=== PATIENT | male | born 1960 | race Caucasian/White ===

== ENCOUNTER 2016-12-16 17:00 | Inpatient (IN) | payer MEDICARE, MEDICAID ==
--- NOTE | 2016-12-16 17:36 | ED.PDOC ---
History of Present Illness - General Chief Complaint: Skin/Abrasion/Tear Stated Complaint: diabetic wound to right plantar foot Time Seen by Provider: 12/16/16 17:24 Source: patient, RN notes reviewed, Vital Signs reviewed Exam Limitations: no limitations - History of Present Illness Initial Comments: Patient comes in with open wound on the sole of his R foot. Reports it has been there a couple months. He was admitted to [facility] in [place] about 2 months ago for same. He left without completing treatment because he said they were not doing their job. He has not had any medical care for foot since leaving the hospital. He has had all the toes on his right foot removed due to diabetic complications and the 1st toe on his left foot. Timing/Duration: getting worse Severity: moderate Location: feet Improving Factors: nothing Worsening Factors: nothing Associated Symptoms: denies symptoms Allergies/Adverse Reactions: Allergies NO KNOWN ALLERGY Allergy (Verified 12/16/16 17:22) Home Medications: Ambulatory Orders Aspirin [Tgt Aspirin Low Dose] 81 mg PO BEDTIME 12/16/16 Insulin Glargine [Lantus Solostar] 15 units SUBCU BEDTIME 12/16/16 Insulin Lispro (Human) [Humalog] 100 unit SC DAILY 12/16/16 Metformin HCl 1,000 mg PO BEDTIME 12/16/16 Review of Systems - Review of Systems Constitutional: States: no symptoms reported Musculoskeletal: States: see HPI - Right foot pain Skin: States: see HPI, other - open wound on bottom of right foot. Neurological: States: no symptoms reported Past Medical History (General) - Patient Medical History Hx Cardiac Disorders: Yes - triple bypass Hx Hypertension: Yes Hx Diabetes: Yes - Vaccination History Hx Tetanus, Diphtheria Vaccination: No Hx Influenza Vaccination: No Hx Pneumococcal Vaccination: No - Social History Hx Tobacco Use: Yes Hx Alcohol Use: No Hx Substance Use: No Hx Substance Use Treatment: No Hx Depression: No - Activities of Daily Living Hospice Agency (if applicable):: None - Female History Patient is a Female of Child Bearing Age (10 -59 yrs old): No Patient : No Family Medical History - Family History Mother Family History: Unknown Physical Exam - Physical Exam General Appearance: Alert, Comfortable, No apparent distress, Unkempt Respiratory: no respiratory distress Extremity: other - Right foot - all toes have been surgically removed. ~3cm open wound on bottom of foot at distal aspect of 1st & 2nd metatarsals. Visable bone or tendon. Surrounding erythema of whole distal foot with streaking up ankle. + swelling and tenderness. Neurologic: no motor/sensory deficits, alert, normal mood/affect, oriented x 3 Skin Exam: warm/dry, normal color Skin Problem Location: lower extremities Skin Character: other - see above Comments: Vital Signs - 24 hr 12/16/16 17:10 Temperature 98.9 F Pulse Rate [ 105 H pulse ox] Respiratory 18 Rate Blood Pressure 125/75 [Left Arm] O2 Sat by Pulse 100 Oximetry Progress - Progress Progress: 12/16/16 18:10 Discussed with Hospitalist. Will admit for IV antibiotics and possible surgical intervention. Will start Zosyn and Vancomycin - Results/Orders Results/Orders: Laboratory Tests 12/16/16 17:41 WBC 9.3 RBC 3.63 L Hgb 9.9 L Hct 29.3 L MCV 80.9 MCH 27.2 MCHC 33.8 RDW 15.0 H Plt Count 216 MPV 7.9 Absolute Neuts (auto) 6.90 H Absolute Lymphs (auto) 1.60 Absolute Monos (auto) 0.60 Absolute Eos (auto) 0.10 Absolute Basos (auto) 0.10 Neutrophils % 74.0 Lymphocytes % 16.8 L Monocytes % 6.8 Eosinophils % 1.6 Basophils % 0.8 Sodium 135 Potassium 3.9 Chloride 104 Carbon Dioxide 24 Anion Gap 10.9 L BUN 44 H Creatinine 1.59 H BUN/Creatinine Ratio 27.7 H Random Glucose 307 H Serum Osmolality 292.9 Calcium 9.0 Total Bilirubin 0.8 AST 21 ALT 13 Alkaline Phosphatase 63 Serum Total Protein 7.3 Albumin 3.8 Globulin 3.5 Albumin/Globulin Ratio 1.1 - EKG/XRAY/CT XRAY: R Foot: air is soft tissue, transmetatarsal amputation Departure - Departure Clinical Impression: Diabetic ulcer of right foot associated with diabetes mellitus due to underlying condition Cellulitis Qualifiers: Site of cellulitis: extremity Site of cellulitis of extremity: lower extremity Laterality: right Qualifier Code: (L03.115) Cellulitis of right lower limb Time of Disposition: 18:34 Disposition: Admit Patient Condition: Good Departure Forms: ED Discharge - Pt. Copy, Patient Portal Self Enrollment Home Medications: Ambulatory Orders Aspirin [Tgt Aspirin Low Dose] 81 mg PO BEDTIME 12/16/16 Insulin Glargine [Lantus Solostar] 15 units SUBCU BEDTIME 12/16/16 Insulin Lispro (Human) [Humalog] 100 unit SC DAILY 12/16/16 Metformin HCl 1,000 mg PO BEDTIME 12/16/16 Decision To Admit - Decistion To Admit Decision to Admit Reason: Admit from ER - Diabetic ulcer, cellulitis
--- NOTE | 2016-12-16 17:50 | RAD ---
PROCEDURE: Foot,Right 3 Views CLINICAL HISTORY: Open wound on sole of foot with pain INDICATION: Same as above COMPARISON: None . TECHNIQUE: 3.0 Views of the right foot were done. FINDINGS: There is transmetatarsal amputation of the right midfoot with presence of air in the distal soft tissues of the right foot, along the distal plantar aspect. This finding is suspicious for soft tissue ulceration in the distal plantar aspect The joint spaces are relatively well-maintained. There is a moderate size plantar calcaneal spur IMPRESSION: There is transmetatarsal amputation of the right midfoot with presence of air in the distal soft tissues of the right foot, along the distal plantar aspect. This finding is suspicious for soft tissue ulceration in the distal plantar aspect Place of interpretation: [id number]. Electronically signed by: Rajinder Erickson MD 12/16/2016 5:49 PM CDT
[2016-12-16] MEDS ORDERED: VANCOMYCIN HCL INJ 1,000 MG, VANCOMYCIN HCL INJ 250 MG in SODIUM CHLORIDE 0.9% 250ML 25... IVPB ONE (18:09)
[2016-12-16] MEDS ORDERED: PIPERACILLIN/TAZOBACTAM 3.375 GM in SODIUM CHLORIDE 0.9% 100ML 100 ML IVPB ONE (18:10)
[2016-12-16] MEDS ORDERED: PIPERACILLIN/TAZOBACTAM 3.375 GM VIAL IVPB ONE ×2 (18:12→21:52)
[2016-12-16] MEDS ORDERED: SODIUM CHLORIDE 0.9% 100ML 100 ML IVPB ONE ×2 (18:13→22:32)
[2016-12-16] MEDS ORDERED: VANCOMYCIN HCL INJ 1,000 MG VIAL IVPB ONE (19:28)
[2016-12-16] MEDS ORDERED: VANCOMYCIN HCL INJ 500 MG VIAL ONE (19:28)
[2016-12-16] MEDS ORDERED: SODIUM CHLORIDE 0.9% 250ML 250 ML ONE (19:28)
[2016-12-16] MEDS ORDERED: ONDANSETRON INJ 4 MG/2 ML VIAL IV ONE (19:42)
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
[2016-12-16] MEDS ORDERED: KCL 20 MEQ/NS 1,000 ML IVS PRN (20:15)
[2016-12-16] MEDS ORDERED: ACETAMINOPHEN 325 MG TAB PO PRN (20:15)
[2016-12-16] MEDS ORDERED: TEMAZEPAM 15 MG CAP PO PRN (20:15)
[2016-12-16] MEDS ORDERED: HYDROcodone 5MG/APAP 325MG 1 EA TAB PO PRN (20:15)
[2016-12-16] MEDS ORDERED: DEXTROSE 50% 25 GM/50 ML SYG IV PRN (20:19)
[2016-12-16] MEDS ORDERED: GLUCAGON INJ 1 MG VIAL SUBCU PRN (20:19)
[2016-12-16] MEDS ORDERED: VANCOMYCIN PER PHARMACY INJ SCH (20:30)
[2016-12-16] MEDS ORDERED: ENOXAPARIN SODIUM 30 MG/0.3 ML SYG SUBCU SCH (20:30)
[2016-12-16] MEDS ORDERED: PANTOPRAZOLE SODIUM IV 40 MG VIAL IV SCH (20:30)
[2016-12-16] MEDS ORDERED: SODIUM CHLORIDE 0.9% 1000ML 1,000 ML IVS PRN (20:37)
[2016-12-16] MEDS: INSULIN LISPRO 100 UNITS/ML PEN SUBCU SCH (22:23)
[2016-12-16] MEDS: SODIUM CHLORIDE 0.9% (FLUSH) 10 ML SYG IV SCH (22:24)
[2016-12-16] MEDS: IV SET AND CAP CHANGE INJ INJ SCH (22:24)
[2016-12-16] MEDS: PIPERACILLIN/TAZOBACTAM 3.375 GM in SODIUM CHLORIDE 0.9% 100ML 100 ML IVPB SCH (22:33)
[2016-12-17] MEDS ORDERED: SODIUM CHLORIDE 0.9% 100ML 0 ML IVPB ONE (02:04)
[2016-12-17] MEDS ORDERED: PIPERACILLIN/TAZOBACTAM 3.375 GM VIAL IVPB ONE ×5 (02:04→23:12)
[2016-12-17] MEDS: PIPERACILLIN/TAZOBACTAM 3.375 GM in SODIUM CHLORIDE 0.9% 100ML 100 ML IVPB SCH ×3 (05:44→18:00)
[2016-12-17] MEDS: INSULIN LISPRO 100 UNITS/ML PEN SUBCU SCH ×4 (07:30→21:33)
[2016-12-17] MEDS: SODIUM CHLORIDE 0.9% (FLUSH) 10 ML SYG IV SCH ×2 (09:00→21:04)
[2016-12-17] MEDS ORDERED: SODIUM CHLORIDE 0.9% 1000ML 1,000 ML IVS ONE (10:41)
--- NOTE | 2016-12-17 10:44 | PCM.CORE ---
Physician DVT/VTE - Prophylaxis Currently: Patient already on anticoagulation therapy - Nurse DVT Assessment & Total Each Risk Factor Represents 3 Points: Medical PT with Hx of NH, CHF, Severe infection/sepsis Each Risk Factor Represents 1 Point: Age 41-60, Medical PT at Bed Rest, Hx of smoking past year DVT Assessment Score: 6 - 5 or more Very High Risk Treatments: Early Ambulation *, Sequential Compression Device
--- NOTE | 2016-12-17 11:14 | PN ---
SUPERVISING PHYSICIAN: Mirlande Tobin MD DATE: 12/17/16 SUBJECTIVE: The patient is sitting up in his bed. He has no complaints of shortness of breath, chest pain, abdominal pain, nausea or vomiting. He also denies any pain to the right foot. I discussed with him the options with his foot that he may have to have part of the lower right leg amputated due to the extent of problems with the wound care and that we were waiting on his medical records from [facility]. OBJECTIVE: VITAL SIGNS: Afebrile. Blood pressure 101/65. Heart rate 106. Respiratory rate 18. O2 saturation 93%. LUNGS: Essentially clear to auscultation bilaterally. CARDIAC: Regular rate and rhythm. ABDOMEN: Soft, nontender, nondistended. Bowel sounds are positive. EXTREMITIES: No cyanosis or clubbing. There is no edema to the left lower extremity, but there is to the distal portion of his right foot is very edematous with some erythema and ecchymosis that extends up to the heel. There is a large, 3 cm open wound on the bottom of the foot that extends along the first and second metatarsals. NEUROLOGIC: Awake, alert, and oriented times three although he is somewhat uncooperative in that he only answers certain questions. LABORATORY: White count 8.0, hemoglobin 9.8, hematocrit 28.9 Platelet count 97. Sodium 130, potassium 4.1, BUN 43, creatinine has gone up slightly to 1.68. Blood sugars are 404. TSH 13.02. Hemoglobin A1c is 12.1. Preliminary wound culture is positive for gram positive cocci. Preliminary blood cultures are negative. All other labs and films have been reviewed via the EMR. ASSESSMENT: 1. Cellulitis of the right foot. 2. Diabetic foot ulcer. 3. Poorly controlled diabetes mellitus, type 2. 4. Hypotension with recent blood pressure with systolic in the 80s. 5. Anemia. 6. Thrombocytopenia. 7. History of coronary artery disease. 8. Hypertension. 9. Remote history of seizures. 10. Unknown thyroid disorder. PLAN: We will continue present supportive care including his vancomycin and Zosyn IV antibiotics. I have restarted his home medications with the exception of his metformin and blood pressure medication. We will start him on Levemir tonight. I have also given him 1 liter of normal saline. I have started him on some Synthroid. We have requested medical records from [facility]. I have also added bronchial hygiene due to his recent history of smoking as well as elevating his leg. I spoke with Dr. Vasquez earlier today and depending on what the test results were from [facility], we will decide if he should be transferred to a wound care hospital or if we will continue to treat him here. Probably at the very least he will require a [id number] amputation at least at some point. Also, we need to rule out any osteomyelitis. He will need good diabetic education and encourage him to do good pulmonary hygiene. We will continue to monitor his labs closely. We will monitor the patient closely and followup as needed. Dr. Tobin is the collaborating physician and available for consultation. ADDENDUM: Will order bilateral arterial Doppler studies of the lower extremities, d/t suspected impaired vascularity. I also spoke to the radiologist and he suggested an MRI with contrast of the right lower extremity to rule out osteomyelitis. There was no mention of osteomyelitis in the report from [facility] in [place]. Will probably wait for culture sensitivities and treat with antibiotics for 6 weeks, get him in to [facility] to get his glucose under control and do MRI as an outpatient. If he has osteomyelitis, will most likely need below knee amputation. #[id number] [facility]
[2016-12-17] MEDS ORDERED: SODIUM CHLORIDE 0.9% 100ML 100 ML IVPB ONE ×4 (11:34→23:13)
[2016-12-17] MEDS ORDERED: SODIUM CHLORIDE 0.9% 1000ML 1,000 ML ONE (17:28)
[2016-12-17] MEDS ORDERED: [UNRECOGNIZED DRUG - OTHER] IVPB SCH (20:00)
[2016-12-17] MEDS ORDERED: VANCOMYCIN HCL IVPB SCH (20:00)
[2016-12-17] MEDS ORDERED: VANCOMYCIN HCL INJ 500 MG VIAL ONE (20:13)
[2016-12-17] MEDS ORDERED: SODIUM CHL 0.9% 250ML (AVIVA) 250 ML IVPB ONE (20:14)
[2016-12-17] MEDS ORDERED: VANCOMYCIN HCL INJ 1,000 MG VIAL IVPB ONE (20:14)
[2016-12-17] MEDS ORDERED: SODIUM CHLORIDE 0.9% 10 ML VIAL ONE (20:44)
[2016-12-17] MEDS ORDERED: INSULIN GLARGINE 15 UNIT SUBCU SCH (21:00)
[2016-12-17] MEDS: ENOXAPARIN SODIUM 40 MG/0.4 ML SYG SUBCU SCH (21:01)
[2016-12-17] MEDS: PANTOPRAZOLE SODIUM IV 40 MG VIAL IV SCH (21:02)
[2016-12-17] MEDS: INSULIN DETEMIR 100 UNITS/ML PEN SUBCU SCH (21:33)
[2016-12-18] MEDS: PIPERACILLIN/TAZOBACTAM 3.375 GM in SODIUM CHLORIDE 0.9% 100ML 100 ML IVPB SCH ×5 (00:18→23:49)
[2016-12-18] MEDS ORDERED: SODIUM CHLORIDE 0.9% 100ML 100 ML IVPB ONE ×4 (04:39→22:01)
[2016-12-18] MEDS ORDERED: PIPERACILLIN/TAZOBACTAM 3.375 GM VIAL IVPB ONE ×4 (04:39→22:01)
[2016-12-18] MEDS ORDERED: LEVOTHYROXINE SODIUM 0.075 MG TAB ONE (04:39)
[2016-12-18] MEDS: SODIUM CHLORIDE 0.9% (FLUSH) 10 ML SYG IV PRN (06:12)
[2016-12-18] MEDS: LEVOTHYROXINE SODIUM 0.075 MG TAB PO SCH (06:12)
[2016-12-18] MEDS: INSULIN LISPRO 100 UNITS/ML PEN SUBCU SCH ×4 (07:43→20:49)
[2016-12-18] MEDS ORDERED: NON-FORMULARY MEDICATION 1 EA MIS (Lisinopril & Hydrochlorothiazi [Lisinopril/Hctz 10-12.5 PO SCH (09:00)
[2016-12-18] MEDS: SODIUM CHLORIDE 0.9% (FLUSH) 10 ML SYG IV SCH ×2 (09:02→20:36)
[2016-12-18] MEDS: hydroCHLOROthiazide 12.5 MG CAP PO SCH (09:02)
[2016-12-18] MEDS: metFORMIN HCL 500 MG TAB PO SCH ×2 (09:02→17:01)
[2016-12-18] MEDS: LISINOPRIL 10 MG TAB PO SCH (09:02)
--- NOTE | 2016-12-18 13:33 | US ---
EXAM DESCRIPTION: Extremity,Lower Tor Arteries CLINICAL HISTORY: 56 years, Male, cellulitis R foot COMPARISON: None. TECHNIQUE: Real-time duplex Doppler ultrasound images obtained of both location arteries FINDINGS: Right lower extremity demonstrates scattered severe intimal thickening and mild wall plaques throughout. The largest focal plaque appears to be at the proximal superficial femoral artery of the about 50% diameter reduction. There are triphasic waveforms throughout the right lower extremity. Velocity in the common femoral artery 90 cm a second. Superficial femoral artery distally is 81 cm/s. Peak in at 116 in the midportion and posterior tibial distally is 127 cm second. At the dorsalis pedal is 32. Left lower extreme pairs rather similar. Largest focal stenosis as the proximal superficial femoral artery of 60% or so stenotic. There are triphasic waveforms throughout the left lower extremity. The velocity in the common femoral artery is 79 cm/s peak in at 90 cm/s in the mid superficial femoral artery and in the distal posterior tibial artery 115 cm/s and 50 in the dorsalis pedal. IMPRESSION: No hemodynamic significant stenosis seen throughout the lower extremity arteries. There is diffuse calcified wall plaques throughout with the largest visual stenosis of about 40% in the proximal right superficial femoral artery and about 60% and the left. Electronically signed by: Felipe Jain MD 12/18/2016 1:32 PM CDT
[2016-12-18] MEDS ORDERED: VANCOMYCIN HCL INJ 1,000 MG VIAL IVPB ONE (20:15)
[2016-12-18] MEDS ORDERED: SODIUM CHL 0.9% 250ML (AVIVA) 250 ML IVPB ONE (20:15)
[2016-12-18] MEDS ORDERED: SODIUM CHLORIDE 0.9% 10 ML VIAL ONE ×2 (20:16→20:19)
--- NOTE | 2016-12-18 20:29 | PN ---
DATE: 12/18/16 SUPERVISING PHYSICIAN: Byron Draper M.D. SUBJECTIVE: The patient is sitting up in his bed. He has no complaints at this time. He denies any pain in that right foot. He denies shortness of breath, chest pain, nausea or vomiting. OBJECTIVE: VITAL SIGNS: He is afebrile, pulse rate 91, blood pressure 157/91, respiratory rate 20, O2 sat is 100%. RESPIRATORY: Essentially clear to auscultation bilaterally. CARDIAC: Regular rate and rhythm. ABDOMEN: Soft, nondistended, non-tender. Bowel sounds are positive. EXTREMITIES: No cyanosis , clubbing or edema to the left lower leg. The right lower leg has some edema around the ankle about +1 and there is a dressing to the ball of his foot that is dry and intact. There is still some erythema and edema to the distal end of the right foot and it is somewhat tender to palpation. NEUROLOGIC: He is awake , alert and oriented times three, although he has difficulty answering some questions at times. LABORATORY: WBCs are 3.6, hemoglobin and hematocrit are stabilized at 9.9 and 28.9, platelets 73. Sodium 139, potassium 3.8, chloride 113, carbon dioxide 23 , BUN 23, creatinine has normalized to 1.17, glucose 106, calcium 7.7. Preliminary blood cultures after 48 hours show no growth, but his wound culture sensitivities were supposed to be available today but due to the presence of 1 gram negative melida and the presence of 2 gram positive cocci, the sensitivities will be delayed until tomorrow. All other labs and films have been reviewed via the EMR. ASSESSMENT: 1. Cellulitis of the right foot. 2. Diabetic foot ulcer. 3. Poorly controlled diabetes mellitus, type 2. 4. Hypotension with recent blood pressure with systolic in the 80s. 5. Anemia. 6. Thrombocytopenia. 7. History of coronary artery disease. 8. Hypertension. 9. Remote history of seizures. 10. Unknown thyroid disorder. PLAN: We will continue present supportive care, including his antibiotics which are vancomycin and Zosyn. I had started his home medications yesterday, but I continue to hold his Metformin. I have restarted his blood pressure medicine. I will await his sensitivities which should be ready tomorrow. Again , after those come back I will try to get in touch with Dr. Martin who is with Infectious Diseases in [place]. Depending on the sensitivities and if he can have oral antibiotics, we will discharge him home with close followup to control his blood sugars at [facility]. Otherwise if he needs IV antibiotics he may need to be transferred to an LTAC or a termite treater helper facility as he will most likely need 6 weeks of antibiotic therapy and that may not be an option at our hospital for Swing Bed, but at this point, I have left that to Ana Allen and we will try to figure out that by Wednesday. I have also ordered wound care with irrigation to that foot daily. We will continue to monitor the patient closely and followup as needed. Dr. Draper is the collaborating physician available for consultation. #[id number] [facility]
[2016-12-18] MEDS: VANCOMYCIN HCL IVPB SCH (20:35)
[2016-12-18] MEDS: SODIUM CHL 0.9% IVPB SCH (20:35)
[2016-12-18] MEDS: PANTOPRAZOLE SODIUM IV 40 MG VIAL IV SCH (20:40)
[2016-12-18] MEDS: INSULIN DETEMIR 100 UNITS/ML PEN SUBCU SCH (20:41)
[2016-12-18] MEDS: ENOXAPARIN SODIUM 40 MG/0.4 ML SYG SUBCU SCH (20:41)
[2016-12-19] MEDS ORDERED: SODIUM CHLORIDE 0.9% 100ML 100 ML IVPB ONE ×4 (06:00→23:47)
[2016-12-19] MEDS ORDERED: PIPERACILLIN/TAZOBACTAM 3.375 GM VIAL IVPB ONE ×4 (06:00→23:47)
[2016-12-19] MEDS: PIPERACILLIN/TAZOBACTAM 3.375 GM in SODIUM CHLORIDE 0.9% 100ML 100 ML IVPB SCH ×3 (06:15→17:39)
[2016-12-19] MEDS: LEVOTHYROXINE SODIUM 0.075 MG TAB PO SCH (06:47)
[2016-12-19] MEDS: INSULIN LISPRO 100 UNITS/ML PEN SUBCU SCH ×4 (07:24→21:00)
[2016-12-19] MEDS ORDERED: SODIUM CHL 0.9% 250ML (AVIVA) 250 ML IVPB ONE ×2 (07:34→18:15)
[2016-12-19] MEDS ORDERED: VANCOMYCIN HCL INJ 1,000 MG VIAL IVPB ONE ×2 (07:34→18:15)
[2016-12-19] MEDS ORDERED: SODIUM CHLORIDE 0.9% 10 ML VIAL ONE (07:41)
[2016-12-19] MEDS: SODIUM CHL 0.9% IVPB SCH ×2 (07:57→20:17)
[2016-12-19] MEDS: VANCOMYCIN HCL IVPB SCH ×2 (07:57→20:17)
[2016-12-19] MEDS: metFORMIN HCL 500 MG TAB PO SCH ×2 (07:57→16:55)
[2016-12-19] MEDS: LISINOPRIL 10 MG TAB PO SCH (08:48)
[2016-12-19] MEDS: SODIUM CHLORIDE 0.9% (FLUSH) 10 ML SYG IV SCH ×2 (08:49→21:06)
[2016-12-19] MEDS: hydroCHLOROthiazide 12.5 MG CAP PO SCH (08:49)
[2016-12-19] MEDS ORDERED: INSULIN DETEMIR 100 UNITS/ML PEN SUBCU SCH (11:11)
--- NOTE | 2016-12-19 11:57 | PN ---
DATE: 12/19/16 SUPERVISING PHYSICIAN: Byron Draper M.D. SUBJECTIVE: The patient is sitting up in his hospital bed. He is watching television. He has no complaints of shortness of breath, chest pain, nausea, vomiting or foot pain. OBJECTIVE: VITAL SIGNS: He is afebrile, heart rate 81, blood pressure 164/85, respiratory rate 18, O2 sat 98%. RESPIRATORY: Clear to auscultation bilaterally. CARDIAC: Regular rate and rhythm. ABDOMEN: Soft, nondistended, non-tender. Bowel sounds are positive. EXTREMITIES: No cyanosis, clubbing or edema to the left lower extremity. He has a trace of pedal edema to the right lower extremity and the distal portion of his foot is covered in a dressing. NEUROLOGIC: He is awake, alert and oriented times three. LABORATORY: WBCs are 3.4, hemoglobin 9.7, hematocrit 28, platelets 84. Sodium 139, potassium 4.1, BUN 12, creatinine 0.99. Blood sugars have run approximately 177 to 266. CRP has gone up slightly to 5.3 from the date of admission. Preliminary blood cultures after 48 hours show no growth. Wound culture has resulted and he has 3 organisms. Number 1 is Acinetobacter Baumannii, number 2 is Staphylococcus Aureus that is non-MRSA, and the third one is Streptococcus Dysgalactiae. He is presently on vancomycin and Zosyn. The cultures show sensitivities to both of those medications. All other labs and films have been reviewed via the EMR. ASSESSMENT: 1. Cellulitis of the right foot presently on Zosyn and vancomycin which his wound cultures are showing sensitivity to both of those medications. 2. Diabetic foot ulcer. 3. Poorly controlled diabetes mellitus type 2. 4. Hypotension with recent blood pressure with systolics in the 80s. It is now in the 140s to 150s. 5. Anemia. 6. Thrombocytopenia. 7. History of coronary artery disease. 8. Hypertension. 9. Remote history of seizures. 10. Hypothyroidism. PLAN: We will continue present supportive care, including his present antibiotics which are vancomycin and Zosyn. His sensitivities are back but I would like to speak to Dr. Martin prior to discharge for a plan for his antibiotic therapy as I know he will most likely need 6 weeks of antibiotic therapy. Depending on what she says, we can either put him in Swing Bed here or he can be sent to an LTAC if it is acceptable with p.o. antibiotics, we may be able to send him home on that for a 6 week therapy as an outpatient. He will need an MRI with contrast to that right lower leg. It is also to be noted that originally his home medication showed that he was taking 50 units of Lantus at bedtime and he was somehow started on 15 units at night. His blood sugars are somewhat uncontrolled at this point so I am going to increase it to 18 tonight and I have discontinued his previous home medication of the long- acting insulin, and will adjust it as needed here in the hospital. Otherwise I have ordered lab for in the morning. We will continue to monitor the patient closely and followup as needed. Dr. Draper is the collaborating physician available for consultation. #[id number] [facility]
[2016-12-19] MEDS: ENOXAPARIN SODIUM 40 MG/0.4 ML SYG SUBCU SCH (20:54)
[2016-12-19] MEDS: PANTOPRAZOLE SODIUM IV 40 MG VIAL IV SCH (21:05)
[2016-12-19] MEDS: IV SET AND CAP CHANGE INJ INJ SCH (21:31)
[2016-12-20] MEDS: SODIUM CHLORIDE 0.9% (FLUSH) 10 ML SYG IV PRN ×4 (00:08→23:55)
[2016-12-20] MEDS: PIPERACILLIN/TAZOBACTAM 3.375 GM in SODIUM CHLORIDE 0.9% 100ML 100 ML IVPB SCH ×5 (00:09→23:56)
[2016-12-20] MEDS ORDERED: PIPERACILLIN/TAZOBACTAM 3.375 GM VIAL IVPB ONE ×4 (04:55→23:24)
[2016-12-20] MEDS ORDERED: SODIUM CHLORIDE 0.9% 100ML 100 ML IVPB ONE ×4 (04:56→23:24)
[2016-12-20] MEDS: LEVOTHYROXINE SODIUM 0.075 MG TAB PO SCH (06:22)
[2016-12-20] MEDS: INSULIN LISPRO 100 UNITS/ML PEN SUBCU SCH ×4 (07:32→21:26)
[2016-12-20] MEDS: metFORMIN HCL 500 MG TAB PO SCH ×2 (07:44→17:00)
[2016-12-20] MEDS ORDERED: VANCOMYCIN HCL INJ 1,000 MG VIAL IVPB ONE ×2 (08:06→19:23)
[2016-12-20] MEDS ORDERED: SODIUM CHL 0.9% 250ML (AVIVA) 250 ML IVPB ONE ×2 (08:06→19:23)
[2016-12-20] MEDS: hydroCHLOROthiazide 12.5 MG CAP PO SCH (08:31)
[2016-12-20] MEDS: SODIUM CHL 0.9% IVPB SCH ×2 (08:31→20:03)
[2016-12-20] MEDS: LISINOPRIL 10 MG TAB PO SCH ×3 (08:31→20:37)
[2016-12-20] MEDS: VANCOMYCIN HCL IVPB SCH ×2 (08:31→20:03)
[2016-12-20] MEDS: SODIUM CHLORIDE 0.9% (FLUSH) 10 ML SYG IV SCH ×2 (08:32→20:37)
[2016-12-20] MEDS ORDERED: INSULIN DETEMIR 100 UNITS/ML PEN SUBCU SCH (08:36)
--- NOTE | 2016-12-20 11:25 | PN ---
DATE: 12/20/16 SUPERVISING PHYSICIAN: Byron Draper M.D. SUBJECTIVE: The patient is sitting up in his bed. He is watching television. He has no complaints of chest pain, shortness of breath, nausea or vomiting or pain in his lower extremities. OBJECTIVE: VITAL SIGNS: He is afebrile, heart rate 81, blood pressure 168/98, respiratory rate 18, O2 sat 97% on room air. RESPIRATORY: Essentially clear to auscultation bilaterally. CARDIAC: Regular rate and rhythm. ABDOMEN: Soft, nondistended, non-tender. Bowel sounds are positive. NEUROLOGIC: He is awake and alert. Answers questions appropriately. EXTREMITIES: Minimal swelling to the right lower extremity. His right foot is covered in a dressing. LABORATORY: WBCs 3.4, platelets have risen slightly to 98. Blood sugars have run between 193 and 237. Preliminary blood cultures after 3 days show no growth. All other labs and films have been reviewed via the EMR. ASSESSMENT: 1. Cellulitis of the right foot presently on Zosyn and vancomycin which his wound cultures are showing sensitivity to both of those medications. 2. Diabetic foot ulcer. 3. Poorly controlled diabetes mellitus type 2. 4. Hypotension with recent blood pressure with systolics in the 80s. It is now in the 140s to 150s. 5. Anemia. 6. Thrombocytopenia. 7. History of coronary artery disease. 8. Hypertension. 9. Remote history of seizures. 10. Hypothyroidism. PLAN: We will continue present supportive care, including his present antibiotics which are vancomycin and Zosyn. His sensitivities show that he could take some p.o. antibiotics, but at this point due to 2 gram positive and 1 gram negative bacteria showing up in the right foot wound, I believe that it would be preferable to talk to Dr. Martin in the morning to see if she would recommend parenteral versus p.o. therapy and the duration of therapy which will most likely be approximately 6 weeks. Ana Allen, our [facility] Worker, has initiated Swing Bed or an LTAC placement if he needs to have lobsterman intravenous therapy. Otherwise if she recommends he may be able to go home on oral antibiotics. He will need to establish care with a primary care physician here in [place]. He needs to get his blood sugars under control as his hemoglobin A1c was 12.1 on admission. He will need an MRI with contrast of the right lower extremity to rule out osteomyelitis, but he will need to do that on an outpatient basis. Dr. Vasquez agreed to see the patient at some point if he needed to have an amputation, but we will discuss that with him after his MRI. I have ordered physical therapy for in the morning. They are to continue with wound care. I have not ordered an ambulatory study as she dos get up in his room quite a bit, but his vital signs have been stable. I have increased his Lisinopril to 10 mg b.i.d. as well as increased his Levemir to 20 units at night. We will continue to monitor the patient closely and followup as needed. Hopefully tomorrow we can make some decisions as to his discharge. Dr. Draper is the collaborating physician available for consultation. #[id number] [facility]
[2016-12-20] MEDS: ENOXAPARIN SODIUM 40 MG/0.4 ML SYG SUBCU SCH (20:37)
[2016-12-20] MEDS: PANTOPRAZOLE SODIUM IV 40 MG VIAL IV SCH (20:37)
[2016-12-21] MEDS ORDERED: SODIUM CHLORIDE 0.9% 100ML 100 ML IVPB ONE (03:07)
[2016-12-21] MEDS ORDERED: PIPERACILLIN/TAZOBACTAM 3.375 GM VIAL IVPB ONE (03:07)
[2016-12-21] MEDS: SODIUM CHLORIDE 0.9% (FLUSH) 10 ML SYG IV PRN (06:15)
[2016-12-21] MEDS: LEVOTHYROXINE SODIUM 0.075 MG TAB PO SCH (06:16)
[2016-12-21] MEDS: PIPERACILLIN/TAZOBACTAM 3.375 GM in SODIUM CHLORIDE 0.9% 100ML 100 ML IVPB SCH (06:16)
[2016-12-21] MEDS ORDERED: VANCOMYCIN HCL INJ 1,000 MG VIAL IVPB ONE (07:17)
[2016-12-21] MEDS ORDERED: SODIUM CHL 0.9% 250ML (AVIVA) 250 ML IVPB ONE (07:17)
[2016-12-21] MEDS: INSULIN LISPRO 100 UNITS/ML PEN SUBCU SCH ×4 (07:38→21:16)
[2016-12-21] MEDS: SODIUM CHL 0.9% IVPB SCH (07:39)
[2016-12-21] MEDS: VANCOMYCIN HCL IVPB SCH (07:39)
[2016-12-21] MEDS: metFORMIN HCL 500 MG TAB PO SCH ×2 (07:40→16:47)
[2016-12-21] MEDS: LISINOPRIL 10 MG TAB PO SCH ×2 (09:03→21:17)
[2016-12-21] MEDS: hydroCHLOROthiazide 12.5 MG CAP PO SCH (09:03)
[2016-12-21] MEDS: SODIUM CHLORIDE 0.9% (FLUSH) 10 ML SYG IV SCH ×2 (09:03→21:17)
[2016-12-21] MEDS ORDERED: levoFLOXacin 500MG IV 500 MG in PREMIX BAG 1 BAG IVPB SCH (11:30)
[2016-12-21] MEDS ORDERED: INSULIN DETEMIR 100 UNITS/ML PEN SUBCU SCH (11:34)
[2016-12-21] MEDS ORDERED: levoFLOXacin 500MG IV 100 ML IVPB ONE (12:19)
[2016-12-21] MEDS: DOXYCYCLINE HYCLATE CAP 100 MG CAP PO SCH ×2 (12:27→21:18)
--- NOTE | 2016-12-21 13:44 | PN ---
DATE: 12/21/16 SUBJECTIVE: The patient is lying in the bed and is fairly comfortable. Slight drainage is noted on the dressing on the right foot. Otherwise, no complaint of significant pain. He states he is ambulate and this will be verified with physical therapy evaluation. His case is discussed also with infectious disease , Dr. Martin, in [place]. OBJECTIVE: VITAL SIGNS: Afebrile. Pulse 88. Blood pressure 157/77. Room air saturation 99%. Weight to be determined. LUNGS: Clear. HEART: Regular. ABDOMEN: Soft. NEUROLOGIC: The patient is otherwise fairly alert. Discussion as to where he would wish to live is undertaken and the patient at this time would prefer to be living in the [place] area where he has lived for 15 years. His brother apparently lives in [place] and he hitchhiked from [place] to [place], but is unable to contact his brother, not knowing his phone number or where he lives. The patient may require specialized care that is also available in the [facility]. He has complete loss of his five toes on the right foot and his big toe on the left foot. He is able to ambulate well, he states, but may eventually require additional help with a cane or other support. LABORATORY: Potassium is low at 3.5 and potassium supplement to be started on. His sugars are 206 fasting this morning. White count is 5,300, hemoglobin 10.6. Cultures show blood cultures negative while the foot culture does show Acinetobacter baumannii, non-MRSA, as well as Strep dysgalactiae. Sensitivity shows him to be sensitive to both fluoroquinolones and to tetracycline. ASSESSMENT: 1. Chronic, recurrent with an acute exacerbation of infection with cellulitis, right foot with drainage showing positive culture for multiple organisms, requiring course of therapy with parenteral Zosyn and vancomycin and now available for a trial of oral therapy. 2. Chronic diabetes mellitus, type 2, currently on insulin and oral therapy, poorly controlled with elevated hemoglobin A1c. 3. Pancytopenia. 4. Significant loss of tissue, both feet, probably as a complication of poorly controlled diabetes with underlying tissue health issues. 5. History of hypotension in the recent past, improved. 6. Chronic anemia. 7. Chronic thrombocytopenia. 8. History of coronary artery disease. 9. History of hypertension. 10. Remote history of seizures. 11. History of hypothyroidism on supplementation. PLAN: The patient's condition is discussed with Dr. Martin, infectious disease, who suggests that we give the patient a trial of Levaquin and doxycycline to cover the multiple organisms with close clinical management and followup. The patient did have a moderate, yet not complete course of treatment for right foot infection in [facility] in August. He has a history of being somewhat poorly compliant and now is moving from [place] to [place] and no expresses an interest to continue the move up to [place]. Special arrangements will need to be made regarding an appointment with Dr. Martin in two weeks. Potassium is added to his current treatment program. He will need to continue with wound care and special attention to diabetes control. We will stop the parenteral medicines today and start Levaquin and tetracycline and observe for initial response tonight. Anticipate being able to arrange for a [facility] transport to [facility] tomorrow with Social Service intervention to assist with the transfer to make it as smooth as possible. #[id number] [facility]
[2016-12-21] MEDS: POTASSIUM CHLORIDE 10 MEQ TAB PO SCH (15:27)
[2016-12-21] MEDS: PANTOPRAZOLE SODIUM TAB 40 MG PO SCH (16:47)
[2016-12-21] MEDS: ENOXAPARIN SODIUM 40 MG/0.4 ML SYG SUBCU SCH (21:17)
[2016-12-22] MEDS: PANTOPRAZOLE SODIUM TAB 40 MG PO SCH (06:13)
[2016-12-22] MEDS: LEVOTHYROXINE SODIUM 0.075 MG TAB PO SCH (06:13)
[2016-12-22] MEDS ORDERED: CHLORHEXIDINE GLUCONATE 4 % 15 ML UD TOP ONE (06:53)
[2016-12-22 07:03] VITALS: BP 170/69; TEMP 97; O2SAT 99
[2016-12-22] MEDS: INSULIN LISPRO 100 UNITS/ML PEN SUBCU SCH (07:42)
[2016-12-22] MEDS: POTASSIUM CHLORIDE 10 MEQ TAB PO SCH (07:43)
[2016-12-22] MEDS: metFORMIN HCL 500 MG TAB PO SCH (07:43)
[2016-12-22] MEDS: SODIUM CHLORIDE 0.9% (FLUSH) 10 ML SYG IV SCH (08:05)
[2016-12-22] MEDS: hydroCHLOROthiazide 12.5 MG CAP PO SCH (08:05)
[2016-12-22] MEDS: LISINOPRIL 10 MG TAB PO SCH (08:05)
[2016-12-22] MEDS: DOXYCYCLINE HYCLATE CAP 100 MG CAP PO SCH (08:05)
--- NOTE | 2016-12-22 10:33 | DS ---
DISCHARGE DIAGNOSIS: 1. Chronic infection with deep ulceration on the ball of the right foot with associated cellulitis, showing improvement with parenteral antibiotics with culture positive for multiple organisms and treated with Zosyn and vancomycin until advanced to an oral therapy course. Close followup necessary. 2. Chronic diabetes mellitus, type 2, currently on insulin supplementation and oral therapy, poorly controlled with an elevated hemoglobin A1c requiring close observation and management. 3. Pancytopenia, showing some improvement. 4. Significant loss of tissue, both feet, with loss of big toe on the left and all toes on the right foot as a complication of poorly controlled diabetes with underlying tissue vascular issues. 5. History of hypotension in the recent past, improved. 6. Chronic anemia. 7. Chronic thrombocytopenia, improved. 8. History of coronary artery disease. 9. History of hypertension. 10. History of remote seizures. 11. History of hypothyroidism, on supplementation, new diagnosis. HISTORY OF PRESENT ILLNESS: This 56-year-old, white male was admitted to the hospital from the Emergency Room because of significant pain in the right foot. He has an open wound to the ball of his right foot with significant erythema and evidence of cellulitis surrounding this. In August of 2016, he was admitted to [facility] in [place] and was severely ill, requiring ventilator support. He was eventually placed on antibiotic therapy, but left the hospital prematurely without completing the full course of therapy. He has lived in [place], but now has moved to [place] and now making the decision that he is going to move to [place] since he has lived there for over 15 years and knows that area very well and has full access to city transportation as well as clinics and specialty intervention sites. In the Emergency Room, his kidney function was suggestive of a prerenal with acute renal injury, showing improvement. Glucose was elevated at over 300. He was started on dual antibiotics of vancomycin and Zosyn pending the culture results. Wound care was to be continued and close observation and management of his diabetes. LABORATORY: White count varied between 9,300 down to 3,400. Hemoglobin was up to 10.6 at the time of discharge. Platelet count was low down to 73,000 and were up to 119,000 at discharge. Chemistries showed potassium down to 3.5 with supplement initiated. BUN was 44 initially, down to 12. Creatinine was 1.68, down to 0.87 at discharge. Glucose required increasing doses of insulin, up to 26 units of Levemir daily to be continued with special dietary intervention to continue as well. Liver enzymes normal. Albumin 3.0. TSH elevated at 13. C- reactive protein was 3.9. Hemoglobin A1c elevated at 12.4 and sugar was up to over 400. Vancomycin trough varied between 7.7 and 13. Cultures were obtained and blood cultures were negative. Right foot culture revealed multiple organisms. These include Acinetobacter baumannii, Staphylococcus non- methicillin resistant and Strep dysgalactia species. Sensitivity to the fluoroquinolones and tetracycline noted and they were to be continued for another two weeks after discharge with continued wound care. X-rays of the lower extremity reveal no specific abscess formation and no evidence of significant stenosis in the lower extremity arteries evident. Right foot x-ray showed amputation of the toes with air in the distal soft tissues of the right foot, suspicious for soft tissue ulceration in the distal plantar aspect, which correlates with clinical findings. HOSPITAL COURSE: The patient was treated vigorously and responded and was feeling much improved at the time of discharge. He was able to ambulate very carefully to avoid putting increased pressure on the area of deep ulceration on the right ball of his foot. He was ready for outpatient followup. His condition had been discussed with Dr. Martin, infectious disease, who suggested a course of oral therapy for the next two weeks and followup in her clinic and he will then make a decision as to whether the treatment needs to be continued or altered in any way. PLAN: The patient will be discharged home on a diabetic diet. Increase activity, but avoid over walking. He will be referred to Dr. Martin's infectious disease clinic in two weeks. He will also be seen by a local clinic to assist with his local diabetic control. See home medications. To the home medications are added doxycycline 100 mg b.i.d., #30, and Levaquin 500 mg daily for two weeks. Continue with Levemir 26 units at bedtime and adjust as needed. Initiated Synthroid 75 mcg daily, #30, given and given a short course of Micro -K KCL 10 mEq q.a.m. Close followup with clinic of his choice in [place]. He is to cleanse and dress the right foot daily. May use the Hibiclens 1 part in 30 parts of water to cleanse the foot. Dress the foot with gauze, yet try to avoid putting tape on the skin directly. Avoid injury to the foot by over walking. Close followup with Dr. Martin in two weeks. Return if not improving. #[id number] [facility]
== END 2016-12-22 08:30 | disposition home or self-care (01) | DRG 603 ==
LOC: ER 17:00 → OBSVTOIN 19:54 → MS 19:54
PROVIDERS: ADMIT Nurse Practitioner Acute Care; ATTEND Emergency Medicine
DX: L03.115 Cellulitis of right lower limb (principal); N17.9 Acute kidney failure, unspecified; D61.818 Other pancytopenia; K52.1 Toxic gastroenteritis and colitis; E86.0 Dehydration; E11.621 Type 2 diabetes mellitus with foot ulcer; L97.519 Non-pressure chronic ulcer of other part of right foot with unspecified severity; E87.6 Hypokalemia; I10 Essential (primary) hypertension; T38.3X5A Adverse effect of insulin and oral hypoglycemic [antidiabetic] drugs, initial encounter; E11.65 Type 2 diabetes mellitus with hyperglycemia; I25.10 Atherosclerotic heart disease of native coronary artery without angina pectoris; E03.9 Hypothyroidism, unspecified; B95.61 Methicillin susceptible Staphylococcus aureus infection as the cause of diseases classified elsewhere; B95.4 Other streptococcus as the cause of diseases classified elsewhere; B96.89 Other specified bacterial agents as the cause of diseases classified elsewhere; I95.9 Hypotension, unspecified; Y92.009 Unspecified place in unspecified non-institutional (private) residence as the place of occurrence of the external cause; Z79.4 Long term (current) use of insulin; Z89.412 Acquired absence of left great toe; Z89.421 Acquired absence of other right toe(s); Z87.891 Personal history of nicotine dependence; Z79.82 Long term (current) use of aspirin; Z95.1 Presence of aortocoronary bypass graft